=== PATIENT | male | born 1965 | race Caucasian/White ===

== ENCOUNTER 2016-03-07 07:47 | Day surgery (SDC) | payer OTHER ==
[2016-03-07] VITALS (9 sets, daily range): BP systolic 98–131; BP diastolic 54–89; PULSE 66–88; RESP 13–16; O2SAT 92–98
[~2016-03-07] VITALS: Ht 175.3 cm; Wt 85.0 kg
[~2016-03-07 07:47] MED LIST: ASPI-973 PO; CHOL400T PO; CeFAZolin 2 Gm/50 mL D5W IV Premix IV ONE; GABA600T2 PO; IBUP800T28 PO; IMP25T PO; LOPE2TAB32 PO; Lactated Ringer's 1,000 ML IV SCH; OXYC5TAB72 PO; PRAZ1CAP2 PO; PREG150C PO; SERT50TA9 PO; SIMV40TA5 PO
[2016-03-07] MEDS ORDERED: MetoCLOpramide 5 mg/mL 2 mL Inj ONE (07:48)
[2016-03-07] MEDS ORDERED: fentaNYL-PF 50 mCg/mL 2 mL Inj ONE (07:48)
[2016-03-07] MEDS ORDERED: EPHEDrine/NS 5 mg/mL 5 mL Syringe ONE (07:48)
[2016-03-07] MEDS ORDERED: Ondansetron 2 mg/mL 2 mL Inj ONE (07:48)
[2016-03-07] MEDS ORDERED: Dexamethasone 4 mg/mL Inj ONE (07:48)
[2016-03-07] MEDS ORDERED: Propofol 10,000 mCg/mL 20 mL Inj ONE (07:48)
[2016-03-07] MEDS ORDERED: Lactated Ringer's 1,000 ML IV ONE ×2 (08:29→11:47)
--- NOTE | 2016-03-07 08:46 | PCM.HPANE ---
Patient Data Surgeon Admitting Provider: Attending Provider:Silverio Mckeon DO Primary Care Physician:Aixa Gonzalez MD Other Provider:KalinocLisy Anesthesia Reason for Visit Right Thumb Ganglion Osteophyte Ht/WT & BMI Height (Feet): 5 Height (Inches): 9.00 Weight (Kilograms): 85.000 Body Mass Index 27.00 Allergies Coded Allergies: amitriptyline (Verified Allergy, Severe, anaphylaxis, 09/22/14) bupropion (Verified Allergy, Severe, 09/22/14) tetracycline (Verified Allergy, Severe, 09/22/14) duloxetine (Verified Allergy, Unknown, nausea, 03/05/16) Past Anesthesia History Anesthesia History: Positive for:: Anesthesia Reactions (wakes up having flashbacks "PTSD"), Denies:: Abnormal Airway, Difficult Intubation, Fam Anesthesia Reaction, Fam Malignant Hypertherm, Malignant Hyperthermia Diabetes History Hx Diabetes?: No MRSA MRSA: No Medications Blood Thinner: Aspirin Hypertension Medication: No Home Meds Incl Beta Constance: No Reported Medications Simvastatin 40 Mg Hvtros74 Mg PO HS 30 Days Ref 0 03/05/16 Sertraline HCl (Sertraline)50 Mg Hnonij42 Mg PO DAILY 30 Days Ref 0 03/05/16 Prazosin 1 Mg Capsule1 Mg PO HS 03/05/16 oxyCODONE 5 Mg Tablet5 Mg PO q6-8h PRN For Pain Ref 0 03/05/16 Pregabalin (Lyrica)150 Mg Fjhmwxj380 Mg PO BID 30 Days Ref 0 03/05/16 Loperamide 2 Mg Tablet2 Mg PO Q4H PRN For Diarrhea or Loose Stool 03/05/16 Imipramine HCl 25 Mg Tab25 Mg PO BID Ref 0 03/05/16 Ibuprofen 800 Mg Knzrxz372 Mg PO TID PRN For Pain Ref 0 03/05/16 Gabapentin 600 Mg Rfdapu019 Mg PO BID Ref 0 03/05/16 Cholecalciferol (Vitamin D3) (Vitamin D3)400 Unit Gbwmdk780 Unit PO DAILY 03/05/16 Aspirin 81 Mg Zbjikn18 Mg PO DAILY Ref 0 03/05/16 Discontinued Reported Medications Simvastatin 40 Mg Viuwyo30 Mg PO HS 30 Days Ref 0 09/21/14 Gabapentin 600 Mg Nwmkmf121 Mg PO BID 30 Days Ref 0 09/21/14 Ibuprofen 800 Mg Ccvkaz621 Mg PO TID PRN For Pain Ref 0 09/21/14 History History of ENT Problems?: Yes HEENT History: Positive for:: Hearing Problem TMJ (wears nightguard occasionally) Denies:: Abnormal Airway Cataracts Difficult Intubation Dysphagia Glaucoma Sinus Problem Hx of Heart Problems?: No Cardiovascular History: Denies:: AICD Atrial Fibrillation Chest Pain Congestive Heart Failure Coronary Artery Disease Edema Heart Murmur Hypertension Irregular Heartbeat Pacemaker Hx of Respiratory Problem?: No Respiratory History: Denies:: Asthma COPD Emphysema Oxygen Administration Pneumonia Tuberculosis Use of C-PAP Machine Use of Inhalers / NEBS Hx Neurologic Problems?: No Neurological History: Denies:: CVA Dementia Dizziness Headaches Multiple Sclerosis Parkinson's Disease Seizures TIA Hx of GI Problems?: Yes Gastrointestinal History: Positive for:: Gastroesphageal Reflux (occasionally not daily) Denies:: Gall Bladder Disease Hepatitis Liver Disease Other GI Pertinent History: hx of IBS Genitourinary History: Positive for:: Kidney Stones (left kidney stone possible current) Male Hx: Denies:: Prostate Problems Scrotal Mass Testicular Surgery Skin History: Denies:: History Skin Disorders? Pressure Ulcers Hx Musculoskeletal Problems?: Yes Musculoskeletal History: Positive for:: Back Injury (lumbar and cervical arthralgias, ) Fibromyalgia Musculoskeletal Trauma (right hand current admission problem) Osteoarthritis ("all over") Denies:: Joint Replacement Systemic Lupus Hx of Psycho/Social Problems?: Yes Psycho Social History: Positive for:: Anxiety (PTSD) Hx Depression Hx Surgeries?: Yes (ing hernia, thumb surgeries, orchiectomy) Hx Any Other Health Problems?: Yes Other History: Denies:: Cancer Thyroid Disease History Blood Transfusions: Positive for:: Accept Blood Products? Denies:: Blood Transfusions Hx Diabetes: No Hx Alcohol Use: YesAlcoholic Drinks Per Day: rarelyHx Substance Use: No Smoking Status: Current Every Day Smoker Have You Smoked inLast 12 mo: No Stop/Bang S-Snoring: Do You Snore Loudly: No T-Tired: feel tired, fatigued: Yes O-Obsered: Observed not breath: No P-Blood Pressure: treated: No B- Body Mass Index > 35 kg/m2: No A- Age over 50: Yes N- Neck Large Circumference: No G- Gender Male: Yes AMANDA Total Score: 3 Risk Assessment Category Category 1A: Patient has history of documented sleep apnea, and HAS NOT received any narcotic, sedative or anesthesia administration during this stay. Category 1B: Patient has history of documented sleep apnea, and HAS received any narcotic , sedative or anesthesia administration during this stay Category 2: Patient has SUSPECTED Obstructive Sleep Apnea, and HAS received any narcotic , sedative or anesthesia administration during this stay. Category 3: Patient has SUSPECTED Obstructive Sleep Apnea and HAS NOT received narcotic, sedative or anesthesia administration during this stay. Category 4: Outpatient in Procedural Areas with known sleep apnea or who screen positive for High Risk via the STOP/BANG questionnaire. Exam Exam Vital Signs Vital Signs Date Time Temp Pulse Resp B/P Pulse Ox O2 Delivery O2 Flow Rate FiO2 03/07/16 08:20 36.3 66 14 112/58 98 Room Air General Appearance: Alert, Oriented X3, Cooperative, No Acute Distress HEENT/AIRWAY: MP 2, Neck Movement (FROM), Mouth Opening (3 FBMO) Lungs: Normal Air Movement Heart: Regular Rate/Rhythm Meds/Labs/Diagnostics Admission Meds Current Medications Lactated Ringer's (Lr) 1,000 ml @ ud STK-MED ONCE IV Last administered on t 08:29; Start 03/07/16 at 08:29; Stop 03/07/16 at 08:30; Status DC Plan Impression Patient chart reviewed, patient interviewed and anesthestic plan with risks, benefits, and alternatives discussed, and informed consent obtained. NPO Status: 03/06@1830 ASA Physical Status: ASA2 Mod Systemic Disease Anesthetic Plan: GA Bene/Risks/Altern/Consents: Yes HP Complete Prior to Induction: Yes Darin Mccracken MD Mar 07, 2016 08:46
[2016-03-07] MEDS ORDERED: Lidocaine 1%-Epi 1:100,000 20 mL Inj INFILTRATE ONE (09:59)
[2016-03-07] MEDS ORDERED: Lactated Ringer's 1,000 ML IV SCH (10:03)
[2016-03-07] MEDS ORDERED: Lactated Ringer's 500 ML IV PRN (10:03)
[2016-03-07] MEDS ORDERED: hydrALAZINE 20 mg/mL Inj IVPUSH PRN (10:05)
[2016-03-07] MEDS ORDERED: MetoCLOpramide 5 mg/mL 2 mL Inj IVPUSH PRN (10:05)
[2016-03-07] MEDS ORDERED: EPHEDrine Sulfate 50 mg/mL Inj IVPUSH PRN (10:05)
[2016-03-07] MEDS ORDERED: Labetalol 5 mg/mL 4 mL Inj IV PRN (10:05)
[2016-03-07] MEDS ORDERED: Atropine 0.4 mg/mL Inj IVPUSH PRN (10:05)
[2016-03-07] MEDS ORDERED: Ondansetron 2 mg/mL 2 mL Inj IVPUSH PRN (10:05)
[2016-03-07] MEDS ORDERED: Phenylephrine 10,000 mCg/mL Inj IVPUSH PRN (10:05)
[2016-03-07] MEDS ORDERED: HYDROmorphone 1 mg/mL Inj IVPUSH PRN (10:05)
[2016-03-07] MEDS: fentaNYL-PF 50 mCg/mL 2 mL Inj IVPUSH PRN ×2 (11:24→11:32)
--- NOTE | 2016-03-07 13:16 | PCM.ANEP1 ---
Post Anesthesia Phase 1 PACU Phase 1 Assessment Vital Signs Vital Signs Date Time Temp Pulse Resp B/P Pulse Ox O2 Delivery O2 Flow Rate FiO2 03/07/16 11:50 83 16 131/65 98 Room Air 03/07/16 11:40 86 15 101/89 92 Room Air 03/07/16 11:20 36.9 88 15 98/62 93 Room Air 03/07/16 11:05 87 14 110/61 97 Room Air 03/07/16 10:50 87 14 111/54 94 Simple Mask 9 03/07/16 10:45 87 14 107/58 94 Simple Mask 9 03/07/16 10:40 87 13 107/55 94 Simple Mask 9 03/07/16 10:35 36.5 85 14 107/55 97 Simple Mask 9 03/07/16 08:20 36.3 66 14 112/58 98 Room Air Anesthetic Administered: GA Level of Alertness: Awake, talking VAUGHAN's with Equal Strength: Yes Pain: No Nausea or Vomiting: No Oxygen Delivery: Room Air Lungs: Normal Air Movement Dermatome Level: Full Sensation Darin Mccracken MD Mar 07, 2016 13:16
--- NOTE | 2016-03-07 13:17 | PCM.ANEP2 ---
Post Anesthesia Evaluation ASA/CMS Post Anesthesia VS in Patient's Normal Range?: Yes Resp Stable; Airway Patent?: Yes CV Function & Hydration Stable: Yes Mental Status Recovered?: Yes Pain control Satisfactory?: Yes N/V Control Satisfactory?: Yes Darin Mccracken MD Mar 07, 2016 13:17
--- NOTE | 2016-03-07 21:00 | OP ---
[address] [address] OPERATIVE REPORT PATIENT: JIAN NARANJO : 1965 MR#: [id number] ADMIT: 03/07/2016 JOB ID: [id number] DATE OF SURGERY: 03/07/2016 PREOPERATIVE DIAGNOSIS(ES): 1. Right thumb recurrent ganglion cyst. 2. Right thumb metacarpophalangeal arthritis with a large osteophyte off of the first metacarpal head. 3. Right small finger soft tissue mass. POSTOPERATIVE DIAGNOSIS(ES): 1. Right thumb recurrent ganglion cyst. 2. Right thumb soft tissue mass. 3. Right thumb metacarpophalangeal arthritis with osteophyte off of the first metacarpal head. 4. Right small finger mucous cyst. PROCEDURES: 1. Right thumb excision of recurrent ganglion cyst. 2. Right thumb excision of soft tissue mass measuring less than a cm2 3. Right thumb 1st metacarpal head ostectomy. 4. Right small finger excision of mucous cyst. SURGEON: Silverio Mckeon DO. ANESTHESIA: General. HISTORY OF PRESENT ILLNESS: The patient is a 51-year-old male that presented with right thumb and small finger pain. He had a previous ganglion cyst excision many years ago but it has started to recur all along the ulnar aspect of the first metacarpophalangeal joint. It was painful, as well as a large prominence along the radial aspect, that represented a large osteophyte off of the first metacarpal head. He also had an area to the dorsal aspect of the small finger that was very tender to palpation that sat above the distal interphalangeal joint. The patient failed conservative treatment and we gave him the option to proceed with a revision and excision of the ganglion cyst, Ostectomy to the first metacarpal head, and excision of the small finger mass. He understood the risks include, but are not limited to, neurovascular injury, tendon injury, infection, recurrent stiffness, persistent pain, all of which may require further intervention. The patient had all questions answered. Consent was signed and placed in the chart. PROCEDURE IN DETAIL: The patient was brought to the operative suite and placed on the operating table. Surgical time-out was performed. Everyone in the room was in agreement. After appropriate anesthesia was obtained, a right upper arm tourniquet was applied and the right upper extremity was prepped and draped in a sterile fashion. The right upper extremity was then exsanguinated and the tourniquet inflated to 250 mmHg. The right thumb ganglion cyst was approached first. The patient's previous incision was utilized. Dissection was carried down along the ulnar aspect of the metacarpophalangeal joint and the ganglion cyst identified. This cyst was freed up from the surrounding soft tissues and excised with its underlying stalk. Copious irrigation was then performed and the skin closed with 4-0 nylon in simple interrupted fashion. Attention was then turned towards the radial aspect of the metacarpophalangeal joint. A small longitudinal incision was made directly overlying the area of prominence. Dissection was carried down. There was a soft tissue mass that sat above the osteophyte. This was fully excised and sent to pathology as a gross specimen. The osteophyte was still prominent to the radial aspect of the first metacarpal head. This was removed utilizing a rongeur, as well as multiple rasps. After it was rasped to a smooth surface, copious irrigation was performed. Subcutaneous tissues were closed with 4-0 Vicryl followed by 4-0 nylon for the skin. Attention was then turned to the right small finger. A T-shaped incision was made overlying the distal interphalangeal joint. Dissection was carried down towards the mucous cyst. The mucous cyst was removed in its entirety and excised without any complication. Copious irrigation was performed, followed by closure of the skin with nylon in a simple interrupted fashion. The patient was placed in a bulky dressing, as well as a thumb spica splint. ESTIMATED BLOOD LOSS: 1 mL. COMPLICATIONS: None. DISPOSITION: The patient tolerated the procedure well. Anesthesia was reversed. The patient was transferred back to recovery. SPECIMENS: A right thumb soft tissue mass off the radial aspect of the first metacarpal head. POSTOPERATIVE PLAN: The patient follow up in the office in two weeks. We will remove the patient's sutures at that time, as well as the splint, and have him start working on range of motion and scar mobilization.
--- NOTE | 2016-03-08 15:10 | PATH ---
SURGICAL PATHOLOGY Attending Physician:Silverio Mckeon MD CASE STATUS: Signed Out PATIENT NAME: JIAN NARANJO PID: [id number] : 1965 DATE COLLECTED:03/07/2016 00:00 SPECIMEN: Mass, NOS CLINICAL HISTORY: A: RIGHT THUMB RADIAL MASS FINAL DIAGNOSIS: 1.RIGHT THUMB RADIAL MASS: FIBROMA OF TENDON SHEATH. ICD10 CODE M67.80 GROSS DESCRIPTION: The specimen is received in one formalin filled container labeled with the patient's name, sublabeled "right thumb radial mass" and consists of 2 light patel portions of tissue which aggregate to 0.6 x 0.5 x 0.3 CM. The smallest piece is inked blue and entirely submitted in one cassette. The largest piece is inked black bisected and entirely submitted in the same cassette. 03/07/2016 DAC MICRO DESCRIPTION: See diagnosis. ICD-9 CODES: CPT CODES: 1: 50821 Electronically Signed Out Aditi Colby MD [facility] Pathology [facility] [address], [place] [address] Technical component performed at [facility], [facility] [address], [place], [address]
== END 2016-03-07 23:59 | disposition home or self-care (01) ==
LOC: SAS 07:47
PROVIDERS: ATTEND Orthopaedic Surgery
DX: M25.741 Osteophyte, right hand (principal); D21.11 Benign neoplasm of connective and other soft tissue of right upper limb, including shoulder; M67.441 Ganglion, right hand; M71.341 Other bursal cyst, right hand; F43.10 Post-traumatic stress disorder, unspecified; M79.7 Fibromyalgia
CPT/HCPCS: 26160; 26230; J0690; J1100; J2250; J2405; J2765; J7120

== ENCOUNTER 2016-03-21 05:56 | Day surgery (SDC) | payer OTHER ==
[2016-03-21] VITALS (9 sets, daily range): BP systolic 97–111; BP diastolic 41–79; PULSE 60–69; RESP 10–20; O2SAT 93–98
[~2016-03-21] VITALS: Ht 172.7 cm; Wt 86.2 kg
[~2016-03-21 05:56] MED LIST changes: -CeFAZolin 2 Gm/50 mL D5W IV Premix IV ONE
[2016-03-21] MEDS ORDERED: fentaNYL-PF 50 mCg/mL 2 mL Inj ONE (05:57)
[2016-03-21] MEDS ORDERED: CeFAZolin 1 Gm/50 mL D5W IV Premix IV SCH (06:00)
[2016-03-21] MEDS ORDERED: CeFAZolin 2 Gm/50 mL D5W Duplex Bag IV ONE (06:05)
[2016-03-21] MEDS: Lactated Ringer's 1,000 ML IV SCH ×2 (06:40→07:28)
--- NOTE | 2016-03-21 07:00 | PCM.HPANE ---
Patient Data Surgeon Admitting Provider: Attending Provider:Alka Rae MD Primary Care Physician:Aixa Gonzalez MD Other Provider:Lisy Wong Anesthesia Reason for Visit Right Testicular Pain Ht/WT & BMI Height (Feet): 5 Height (Inches): 8 Weight (Kilograms): 86.2 Body Mass Index 28.00 Allergies Coded Allergies: amitriptyline (Verified Allergy, Severe, anaphylaxis, 09/22/14) bupropion (Verified Allergy, Severe, 09/22/14) tetracycline (Verified Allergy, Severe, 09/22/14) duloxetine (Verified Allergy, Unknown, nausea, 03/05/16) Uncoded Allergies: DOXYCYLINE (Allergy, Mild, DOESNT REMEMBER, 03/21/16) Past Anesthesia History Anesthesia History: Positive for:: Anesthesia Reactions (wakes up having flashbacks "PTSD"), Denies:: Abnormal Airway, Difficult Intubation, Fam Anesthesia Reaction, Fam Malignant Hypertherm, Malignant Hyperthermia Diabetes History Hx Diabetes?: No MRSA MRSA: No Medications Blood Thinner: Aspirin Home Meds Incl Beta Constance: No Reported Medications Simvastatin 40 Mg Fgxxnt74 Mg PO HS 30 Days Ref 0 03/05/16 Prazosin 1 Mg Capsule1 Mg PO HS 03/05/16 oxyCODONE 5 Mg Tablet5 Mg PO q6-8h PRN For Pain Ref 0 03/05/16 Pregabalin (Lyrica)150 Mg Saoupoo495 Mg PO BID 30 Days Ref 0 03/05/16 Loperamide 2 Mg Tablet2 Mg PO Q4H PRN For Diarrhea or Loose Stool 03/05/16 Ibuprofen 800 Mg Egwtlq122 Mg PO TID PRN For Pain Ref 0 03/05/16 Cholecalciferol (Vitamin D3) (Vitamin D3)400 Unit Ggosqp241 Unit PO DAILY 03/05/16 Aspirin 81 Mg Itgkcb54 Mg PO DAILY Ref 0 03/05/16 Discontinued Reported Medications Sertraline HCl (Sertraline)50 Mg Rnohmq42 Mg PO DAILY 30 Days Ref 0 03/05/16 Imipramine HCl 25 Mg Tab25 Mg PO BID Ref 0 03/05/16 Gabapentin 600 Mg Moypek759 Mg PO BID Ref 0 03/05/16 History History of ENT Problems?: Yes HEENT History: Positive for:: Hearing Problem TMJ (wears nightguard occasionally) Denies:: Abnormal Airway Cataracts Difficult Intubation Dysphagia Sinus Problem Hx of Heart Problems?: No Cardiovascular History: Denies:: AICD Atrial Fibrillation Chest Pain Congestive Heart Failure Edema Heart Murmur Hypertension Irregular Heartbeat Pacemaker Hx of Respiratory Problem?: No Respiratory History: Denies:: Asthma COPD Emphysema Oxygen Administration Pneumonia Tuberculosis Use of C-PAP Machine Hx Neurologic Problems?: No Neurological History: Denies:: CVA Dementia Dizziness Headaches Multiple Sclerosis Parkinson's Disease Seizures Hx of GI Problems?: Yes Gastrointestinal History: Positive for:: Gastroesphageal Reflux (occasionally not daily) Denies:: Hepatitis Hx of Problems?: Yes Genitourinary History: Positive for:: Kidney Stones (left kidney stone possible current) Male Hx: Positive for:: Testicular Surgery (right testicular pain, current admission problem) Denies:: Prostate Problems Scrotal Mass Skin History: Denies:: History Skin Disorders? Pressure Ulcers Hx Musculoskeletal Problems?: Yes Musculoskeletal History: Positive for:: Back Injury (lumbar and cervical arthralgias, ) Musculoskeletal Trauma (right hand recent surgery 03/07/16) Denies:: Joint Replacement Systemic Lupus Hx of Psycho/Social Problems?: Yes Psycho Social History: Positive for:: Anxiety (PTSD) Hx Depression Hx Surgeries?: Yes (ing hernia, thumb surgeries, orchiectomy) Hx Any Other Health Problems?: Yes Other History: Denies:: Cancer Thyroid Disease History Blood Transfusions: Denies:: Blood Transfusions Hx Diabetes: No Hx Alcohol Use: YesHx Substance Use: No Smoking Status: Current Every Day Smoker Have You Smoked inLast 12 mo: No Stop/Bang P-Blood Pressure: treated: No B- Body Mass Index > 35 kg/m2: No A- Age over 50: Yes N- Neck Large Circumference: No G- Gender Male: Yes AMANDA Risk Assessment: Low Risk, <3 Yes Risk Assessment Category Category 1A: Patient has history of documented sleep apnea, and HAS NOT received any narcotic, sedative or anesthesia administration during this stay. Category 1B: Patient has history of documented sleep apnea, and HAS received any narcotic , sedative or anesthesia administration during this stay Category 2: Patient has SUSPECTED Obstructive Sleep Apnea, and HAS received any narcotic , sedative or anesthesia administration during this stay. Category 3: Patient has SUSPECTED Obstructive Sleep Apnea and HAS NOT received narcotic, sedative or anesthesia administration during this stay. Category 4: Outpatient in Procedural Areas with known sleep apnea or who screen positive for High Risk via the STOP/BANG questionnaire. Exam Exam Vital Signs Vital Signs Date Time Temp Pulse Resp B/P Pulse Ox O2 Delivery O2 Flow Rate FiO2 03/21/16 06:13 36.3 69 16 109/72 97 Room Air General Appearance: Alert, Oriented X3, Cooperative, No Acute Distress HEENT/AIRWAY: MP 2 Lungs: Clear to Auscultation, Normal Air Movement Heart: Exam Unremarkable, Regular Rate/Rhythm, No Murmurs/Rubs/Gallops Meds/Labs/Diagnostics Admission Meds Current Medications Lactated Ringer's (Lr) 1,000 ml @ 120 mls/hr Q8H20M IV Last administered on t 06:40; Start 03/21/16 at 05:00; Stop 03/21/16 at 13:19 Plan Impression Patient chart reviewed, patient interviewed and anesthestic plan with risks, benefits, and alternatives discussed, and informed consent obtained. NPO Status: 0300 SIP OF COFFEE WITH CREAMER ASA Physical Status: ASA1 Normal Healthy Anesthetic Plan: GA Bene/Risks/Altern/Consents: Yes HP Complete Prior to Induction: Yes Aylin Almaguer MD Mar 21, 2016 07:00
[2016-03-21] MEDS ORDERED: Dexamethasone 4 mg/mL Inj IVPUSH PRN (07:45)
[2016-03-21] MEDS ORDERED: HYDROmorphone 1 mg/mL Inj IVPUSH PRN (07:45)
[2016-03-21] MEDS ORDERED: Ondansetron 2 mg/mL 2 mL Inj IVPUSH PRN (07:45)
[2016-03-21] MEDS ORDERED: Labetalol 5 mg/mL 4 mL Inj IV PRN (07:45)
[2016-03-21] MEDS ORDERED: Phenylephrine 10,000 mCg/mL Inj IVPUSH PRN (07:45)
[2016-03-21] MEDS ORDERED: Lactated Ringer's 1,000 ML IV SCH (07:45)
[2016-03-21] MEDS ORDERED: MetoCLOpramide 5 mg/mL 2 mL Inj IVPUSH PRN (07:45)
[2016-03-21] MEDS ORDERED: hydrALAZINE 20 mg/mL Inj IVPUSH PRN (07:45)
[2016-03-21] MEDS ORDERED: EPHEDrine Sulfate 50 mg/mL Inj IVPUSH PRN (07:45)
[2016-03-21] MEDS ORDERED: Atropine 0.4 mg/mL Inj IVPUSH PRN (07:45)
[2016-03-21] MEDS ORDERED: fentaNYL-PF 50 mCg/mL 2 mL Inj IVPUSH PRN (07:45)
[2016-03-21] MEDS ORDERED: Lactated Ringer's 500 ML IV PRN (07:45)
[2016-03-21] MEDS ORDERED: Bupivacaine-MPF 0.25% 30 mL Inj INFILTRATE ONE (07:47)
--- NOTE | 2016-03-21 08:41 | OP ---
[address] [address] OPERATIVE REPORT PATIENT: JIAN NARANJO : 1965 MR#: [id number] ADMIT: 03/21/2016 JOB ID: [id number] DATE OF SURGERY: 03/21/2016 SURGEON: Alka Rae MD. PREOPERATIVE DIAGNOSIS(ES): Right testicular pain. POSTOPERATIVE DIAGNOSIS(ES): Right testicular pain. PROCEDURE: Right inguinal orchiectomy. ANESTHESIA: General anesthetic. ANESTHESIOLOGIST: Aylin Almaguer MD. DESCRIPTION OF PROCEDURE: Under general anesthetic, patient placed in supine position. Genitalia and lower abdomen prepped and draped in a sterile manner. A right inguinal incision was made with a 10 blade. Further dissection with electrocautery down to the spermatic cord. There is significant scar tissue from his previous hernia repair. After exposing the spermatic cord, the testicle was delivered from the scrotum. The gubernaculum was divided with electrocautery. All remaining attached fibrous attachments were divided with electrocautery, and the cord was dissected free to the mid inguinal canal. At that point, the cord was cross clamped and divided, suture ligated with 3-0 silk. The stump of the cord was then infiltrated with 0.25% Marcaine. The external oblique aponeurosis was reapproximated with 3-0 Vicryl. Subcutaneous tissues closed with 3-0 chromic, the skin with metal clips. The patient tolerated the procedure well. The estimated blood loss zero. The patient left the operating room in good condition under light anesthesia.
--- NOTE | 2016-03-21 10:13 | PCM.ANEP1 ---
Post Anesthesia Phase 1 PACU Phase 1 Assessment Vital Signs Vital Signs Date Time Temp Pulse Resp B/P Pulse Ox O2 Delivery O2 Flow Rate FiO2 03/21/16 09:12 61 16 111/41 96 Room Air 03/21/16 08:53 61 16 111/79 97 Room Air 03/21/16 08:35 62 20 108/69 94 Room Air 03/21/16 08:30 36.3 60 16 110/66 96 Room Air 03/21/16 08:25 62 13 99/65 93 Room Air 03/21/16 08:20 63 13 102/62 94 Room Air 03/21/16 08:15 61 13 97/56 97 Room Air 03/21/16 08:13 36.9 61 10 101/64 98 Simple Mask 8 03/21/16 06:13 36.3 69 16 109/72 97 Room Air Anesthetic Administered: GA Level of Alertness: Awake, talking VAUGHAN's with Equal Strength: Yes Pain: No Nausea or Vomiting: No Oxygen Delivery: Simple Mask Lungs: Clear to Auscultation, Normal Air Movement Aylin Almaguer MD Mar 21, 2016 10:13
--- NOTE | 2016-03-21 10:59 | PCM.ANEP2 ---
Post Anesthesia Evaluation ASA/CMS Post Anesthesia VS in Patient's Normal Range?: Yes Resp Stable; Airway Patent?: Yes CV Function & Hydration Stable: Yes Mental Status Recovered?: Yes Pain control Satisfactory?: Yes N/V Control Satisfactory?: Yes Aylin Almaguer MD Mar 21, 2016 10:59
--- NOTE | 2016-03-25 14:52 | PATH ---
SURGICAL PATHOLOGY Attending Physician:Alka Rae MD () CASE STATUS: Signed Out PATIENT NAME: JIAN NARANJO PID: [id number] : 1965 DATE COLLECTED:03/21/2016 16:48 SPECIMEN: Testis CLINICAL HISTORY: A: RIGHT TESTICLE FINAL DIAGNOSIS: Right Testicle: Benign cyst of tunica. Testicular parenchyma with no pathologic alterations. No evidence of neoplasia. ICD10: N50.9 GROSS DESCRIPTION: The specimen is received in formalin, labeled with the patient's name, sublabeled as right testicle, weighs 48.5 g and consists of a testis (3.5 x 3.0 x 2.6 cm), epididymis (2.5 x 1.5 x 0.5 cm), portion of spermatic cord (length-4.7 cm, diameter-1.8 cm), and tunica vaginalis. The testicular parenchyma is noonan spongy and unremarkable. The tunica albuginea is diffusely thickened. The epididymis is red-brown and spongy. The spermatic cord is fatty. The tunica vaginalis contains a cystic cavity (1.3 x 1.2 x 0.7 cm) containing clear yellow gelatinous material. No nodules, masses or lesions are identified. Ink code: black-resection margin. Section code: (A) resection margin and spermatic cord the serially sectioned apprenticeship training representative; (B-E) testis, one full cross section, quartered, entirely submitted; (F, G) testis, apprenticeship training representative. 03/22/16 JM MICRO DESCRIPTION: Sections are of testicle with normal germinal epithelium. There is a cyst in the tunica filled with proteinaceous fluid and lined by a flattened single layer of epithelium. No dysplasia, atypia or neoplasia identified. ICD-9 CODES: CPT CODES: 1: 74235 Electronically Signed Out Aditi Colby MD [facility] Pathology [facility] [address], [place] [address] Technical component performed at [facility], [facility] [address], [place], [address]
== END 2016-03-21 23:59 | disposition home or self-care (01) ==
LOC: SAS 05:56
PROVIDERS: ATTEND Urology
DX: N44.1 Cyst of tunica albuginea testis (principal); F17.210 Nicotine dependence, cigarettes, uncomplicated; Z79.82 Long term (current) use of aspirin
CPT/HCPCS: 54520; J0690; J1170; J2250; J7120